=== PATIENT | male | born 1935 | race Asian ===

== ENCOUNTER 2025-01-19 06:17 | Day surgery (SDC) | payer MEDICARE, MEDICAID ==
[2025-01-18 15:16] LABS: Basophils # (auto) 0 10 ^3/uL (0-0.2); Basophils % (auto) 0.6 % (0.0-2.0); Eosinophils # (auto) 0.4 10 ^3/uL (0-0.8); Eosinophils % (auto) 5.3 % (0.0-7.0); Hematocrit 37.2 % (41.0-53.0); Hemoglobin 12.1 g/dL (13.5-17.5); Lymphocytes # (auto) 2.3 10 ^3/uL (0.4-5.4); Lymphocytes % (auto) 34.3 % (10.0-50.0); Mean Corpuscular Hemoglobin 31.1 pg (28.0-32.0); Mean Corpuscular Hgb Conc. 32.5 g/dL (32.0-36.0); Mean Corpuscular Volume 95.9 fL (80.0-100.0); Monocytes # (auto) 0.6 10 ^3/uL (0-1.3); Neutrophils # (auto) 3.4 10 ^3/uL (1.6-8.6); Neutrophils % (auto) 50.8 % (37.0-80.0); Nucleated Red Blood Cells % 0.1 %; Platelet Count (auto) 171 10^3/uL (140-450); Red Blood Cells 3.88 10^6/uL (4.5-5.90); Red Cell Distribution Width 13.8 % (11.8-14.3); White Blood Cell 6.7 10^3/uL (4.4-10.8)
[2025-01-18 15:19] LABS: Urine Bacteria MANY /hpf (None Seen); Urine Blood 3+ /uL (Negative); Urine Clarity Turbid (Clear); Urine Color Light-Yellow (Yellow); Urine Protein, UAD 1+ (Negative); Urine Specific Gravity 1.017 (1.001-1.035); Urine Squamous Epithelial Cell FEW /hpf (<5); Urine Urobilinogen Normal (Negative); Urine WBC 82 /HPF (0-3); Urine pH 5.5 (5.0-9.0)
[2025-01-18 15:42] LABS: INR 0.96 (0.9-1.15); Partial Thromboplastin Time 27.5 SEC (24.5-34.5); Prothrombin Time 10.2 sec (9.3-11.8)
[2025-01-18 16:13] LABS: Alanine Aminotransferase 22 U/L (7-40); Albumin 4.8 g/dL (3.2-4.8); Anion Gap 8 (5-15); Aspartate Aminotransferase 21 U/L (13-40); BUN/Creatinine Ratio 14.8 (10.0-20.0); Calcium 9.9 mg/dL (8.7-10.4); Carbon Dioxide 21 mmol/L (20-31); Potassium 4.5 mmol/L (3.5-5.1); Sodium 138 mmol/L (136-145)
[2025-01-18 16:14] LABS: Alkaline Phosphatase 124 U/L (46-116); Bilirubin, Total 0.7 mg/dL (0.2-1.0); Blood Urea Nitrogen 43 mg/dL (9-23); Chloride 109 mmol/L (98-107); Glucose 175 mg/dL (74-106)
[~2025-01-19] VITALS: Ht 162.6 cm; Wt 61.2 kg
[~2025-01-19 06:17] MED LIST: APIX2.5T PO; ATOR-507 PO; B-CO-5 OR; CLOP75TA28 PO; GLIP5TAB21 PO; LOSA-533 PO; METO25TA36 PO
[2025-01-19] MEDS ORDERED: SUCCINYLCHOLINE CHLORIDE 20 MG/ML 10ML VIAL IV ONE (06:45)
[2025-01-19] MEDS ORDERED: IOHEXOL 300 MG/ML 100ML BOTTLE IJ ONE (06:50)
[2025-01-19] MEDS ORDERED: MIDAZOLAM HCL 2MG/2ML 2ml VIAL (1mg/ml) ONE (06:56)
[2025-01-19] MEDS ORDERED: MEPERIDINE HCL (25 MG/ML) 1ML VIAL ONE (06:56)
[2025-01-19] MEDS ORDERED: fentaNYL CITRATE 100 MCG/2 ML VL ONE (06:56)
[2025-01-19] MEDS ORDERED: LIDOCAINE 1% INJ PF 5ML AMP ONE (06:59)
[2025-01-19] MEDS ORDERED: PROPOFOL 10 MG/ML 20 ML IV ONE (07:00)
[2025-01-19] MEDS ORDERED: SODIUM CHLORIDE LOCK 10 ML ONE (07:00)
[2025-01-19] MEDS ORDERED: ONDANSETRON HCL 4 MG/2 ML VIAL ONE (07:00)
[2025-01-19] MEDS: CIPROFLOXACIN 400MG/200ML 200 ML IV ONE (07:35)
[2025-01-19 08:13] VITALS: PULSE 71; RESP 12; TEMP 97.3; O2SAT 99
--- NOTE | 2025-01-19 08:24 | DVHDS2 ---
New Physician D'charge PN Admitting Diagnosis Admitting Diagnosis Bilateral ureteral stent Migrated right ureteral stent Bilateral ureteral obstruction Discharge Diagnosis Same Operations or Procedures Cystoscopy with bilateral ureteral stents exchange Reason(s) For Hospitalization Surgery Treatment Plan Discharge Complications None Condition of Discharge Fair Disposition Home Discharge Instructions Diet: Regular Activity: Light activity Activity comment: Florian catheter management Medications: Given Follow Up Care Follow Up/Referral: Florian removal in two days Next stent exchange in one year Discharge Statement: "Patient was advised to return to the ER or call 911 if any headaches, dizziness, shortness of breath, chest pain, abdominal pain, bleeding, fevers, or worsening of medical condition. Patient was counseled about treatment plan, medications, possible side effects, patientverbalized understanding. All questions were answered to the best of my ability. This discharge took greater then 30 minutes in planning, reviewing documentation, counseling the patient, and discussing with other team members." ERNESTO ALAN MD Jan 19, 2025 08:24
--- NOTE | 2025-01-19 08:30 | DVHOP2 ---
Operative Report - 2 Report Details Date: 01/19/25 Preop Diagnosis: Bilateral ureteral stent Migrated right ureteral stent Bilateral ureteral obstruction Urethral stricture disease History of prostate cancer status post radical prostatectomy Postop Diagnosis: Same Surgeon: Ernesto Alan Anesthesiologist: Avelino Anesthesia: Mac Consent: The patient was informed of the risks and benefits of the procedure. These include but are not limited to complications of anesthesia, postoperative infection, incomplete relief of symptoms, recurrence of symptoms, damage to blood vessels, nerves and tendons, deep venous thrombosis, pulmonary embolism and possible need for repeat surgery in the future. Complications: None Indications for Surgery: Patient has chronic ureteral obstruction requiring stents that are changed semi annually. He has right ureteral stent has recently migrated and calcified. He is here to exchange the stents to extended Coloplast silicone stents. Name of Procedure Performed Cystoscopy with bilateral ureteral stents exchange Cystoscopy with urethral dilation and Florian catheter placement Procedure Details Procedure Details: After obtaining the consent, patient was taken to OR suite and underwent general anesthesia. With the patient positioned in the lithotomy, the area of the genitalia was prepped and draped in usual sterile fashion. Next, a 22 F Cystoscope was used to access the urethra and bladder. There was a mid urethral stricture that was dilated with Melany sounds to 20 two Nigerian.. No tumors or stones were seen in the bladder.The right ureteral stent was identified and using the grasper it was taken out to the meatus and a sensor tip guidewire was advanced into the right ureter through the old stent and advanced into the right kidney under fluoroscopy. A 6 x 24 JJ Coloplast silicone ureteral stent was placed into the right kidney over the sensor wire with the proximal and distal curls confirmed under fluoroscopy and directional visualization.Next, the left ureteral stent was identified and using the grasper it was taken out in one piece without any resistance to the meatus. Next a sensor tip guidewire was placed into the left ureter through the old stent and advanced into the left kidney under fluoroscopy. A 6 x 26 JJ ureteral stent was placed into the left kidney over the sensor wire with the proximal and distal curls confirmed under fluoroscopy and directional visualization. The bladder was emptied and the cystoscope was taken out. Eighteen Nigerian Florian catheter was temporarily placed for the management of the stricture of the urethra. Patient was put back in supine position. Patient was awoken and moved to in stable condition. Specimen: Old stents Condition Fair Disposition Home ERNESTO ALAN MD Jan 19, 2025 08:30
[2025-01-19 09:25] VITALS: BP 156/62; PULSE 60; RESP 13; O2SAT 100
--- NOTE | 2025-01-19 10:31 | DVH ---
C-ARM FLUOROSCOPY: PROCEDURE: Bilateral internal ureteral stent placement FLUOROSCOPY TIME: 19.6 seconds DAP: 3.05 mgy FINDINGS: Spot intraoperative C arm radiographs demonstrating bilateral internal ureteral stents. IMPRESSION: Please refer to surgical report for detailed findings.
== END 2025-01-19 09:40 | disposition home or self-care (01) ==
LOC: SUR 06:17
PROVIDERS: ATTEND Urology
DX: T83.123A Displacement of other urinary stents, initial encounter (principal); N13.5 Crossing vessel and stricture of ureter without hydronephrosis; N35.919 Unspecified urethral stricture, male, unspecified site; F17.200 Nicotine dependence, unspecified, uncomplicated; I10 Essential (primary) hypertension; Z98.41 Cataract extraction status, right eye; Z98.42 Cataract extraction status, left eye; Z85.46 Personal history of malignant neoplasm of prostate; Z90.79 Acquired absence of other genital organ(s); Z98.890 Other specified postprocedural states
CPT/HCPCS: 36415; 52332; 74018; 76000; 80053; 81001; 82962; 85025; 85610; 85730; 87086; 88300; C1769; J0330; J0744; J2175; J2250; J2405; J2704; J3010; J7030; Q9967

== ENCOUNTER 2025-07-21 13:58 | Outpatient (CLI) | payer MEDICARE, MEDICAID ==
[2025-07-21 14:54] LABS: Urine Amorphous Crystal FEW /hpf (None Seen); Urine Protein, UAD 1+ (Negative)
== END 2025-07-21 17:00 | disposition home or self-care (01) ==
LOC: LAB 13:58
PROVIDERS: ATTEND Urology
DX: Z96.0 Presence of urogenital implants (principal); Z79.899 Other long term (current) drug therapy
CPT/HCPCS: 81001; 87086